=== PATIENT | male | born 1985 | race Two or more races ===

== ENCOUNTER 2022-05-02 13:31 | Emergency (ER) | payer MEDICAID, OTHER ==
[~2022-05-02] VITALS: Ht 175.3 cm; Wt 78.0 kg
[2022-05-02 14:33] VITALS: BP 119/64
[2022-05-02] MEDS ORDERED: IBUP800T27 PO (15:02)
== END 2022-05-02 15:09 | disposition home or self-care (01) ==
LOC: ER 13:35
DX: S62.326A Displaced fracture of shaft of fifth metacarpal bone, right hand, initial encounter for closed fracture (principal); Z79.1 Long term (current) use of non-steroidal anti-inflammatories (NSAID); W22.8XXA Striking against or struck by other objects, initial encounter; Y93.89 Activity, other specified; Y92.89 Other specified places as the place of occurrence of the external cause; Y99.8 Other external cause status
CPT/HCPCS: 29125; 73130